=== PATIENT | male | born 1990 | race Caucasian/White ===

== ENCOUNTER 2019-01-18 21:05 | Emergency (ER) | payer BC ==
[~2019-01-18] VITALS: Ht 177.8 cm; Wt 78.9 kg
[2019-01-18 21:10] VITALS: BP_SYST 155
--- NOTE | 2019-01-18 21:10 | NUR ---
Patient to ER bed 6 to gown for evaluation. Side rails up. Report given to JON JONES.
[2019-01-18] MEDS ORDERED: ACETAMINOPHEN 325 MG TABLET ONE (21:35)
--- NOTE | 2019-01-18 21:44 | NUR ---
PT walked to bathroom in non slip shoes with steady gait to provide urine sample
[2019-01-18] MEDS ORDERED: ONDANSETRON HCL 4 MG/2 ML VIAL IVP ONE (21:45)
[2019-01-18] MEDS ORDERED: ONDANSETRON HCL 4 MG/2 ML VIAL ONE (21:48)
--- NOTE | 2019-01-18 21:50 | NUR ---
# 20 gauge angiocath placed to LAC. Use of asceptic technique. Opsite placed over site. Blood return noted. Blood for lab drawn from site. Flushed with 10 cc of normal saline. No evidence of infiltration noted. Patient tolerated well.
[2019-01-18 21:51] LABS: BILIRUBIN,URINE NEGATIVE (NEGATIVE); BLOOD, URINE NEGATIVE (NEGATIVE); CLARITY/URINE CLEAR (CLEAR); COLOR,URINE YELLOW (YELLOW); GLUCOSE,URINE 3+ (NEGATIVE); KETONES,URINE TRACE (NEGATIVE); LEUKOCYTE ESTERASE ,URINE NEGATIVE (NEGATIVE); NITRITE, URINE NEGATIVE (NEGATIVE); PROTEIN URINE NEGATIVE (NEGATIVE); UROBILINOGEN,URINE 0.2 (0.2-1.0)
--- NOTE | 2019-01-18 21:55 | NUR ---
Dr. Hatfield at bedside.
[2019-01-18] MEDS ORDERED: IPRATROPIUM/ALBUTEROL SULFATE 3 ML AMPUL.NEB (DUONEB) INH ONE (22:00)
--- NOTE | 2019-01-18 22:04 | NUR ---
RT at bedside. DuoNeb tx in progress.
--- NOTE | 2019-01-18 22:07 | NUR ---
Specimens for Strep and Influenza collected and sent to lab.
--- NOTE | 2019-01-18 22:10 | NUR ---
Pt to X-ray via W/C in stable condition.
--- NOTE | 2019-01-18 22:15 | NUR ---
Pt returns from x-ray. Verbalizes improvement in symptoms, no SOB, no C/P. Reconnected to case monitor, ST 112, Dr. Hatfield notified. IV fluids resume to patent PIV LAC without difficulty. No needs verbalized.
--- NOTE | 2019-01-18 22:20 | NUR ---
RT called for ABG.
--- NOTE | 2019-01-18 22:24 | NUR ---
RT at bedside to draw ABG.
[2019-01-18 22:25] LABS: BASOPHILS % (AUTO) 0.1 % (0.0-2.0); EOSINOPHILS # (AUTO) 0.1 K/uL (0.0-0.4); EOSINOPHILS % (AUTO) 1.3 % (0.0-4.0); HEMOGLOBIN 13.9 g/dL (14.0-18.0); LYMPHOCYTES # (AUTO) 0.7 K/uL (1.0-5.5); MEAN CORPUSCULAR HEMOGLOBIN 22 pg (27-31); MEAN CORPUSCULAR HGB CONC 32 % (32-36); MEAN CORPUSCULAR VOLUME 69 fL (79.0-98.0); MONOCYTES # (AUTO) 0.6 K/uL (0.0-1.0); MONOCYTES % (AUTO) 5.3 % (1.7-9.3); NEUTROPHILS # (AUTO) 9.7 K/uL (1.8-7.7); NEUTROPHILS % (AUTO) 87.3 % (40.0-70.0); PLATELET COUNT (AUTO) 221 K/uL (130-430); RED BLOOD CELL COUNT(AUTO) 6.34 MIL/uL (4.2-6.2); RED CELL DISTRIBUTION WIDTH 14.3 % (9.0-15.0); WHITE BLOOD COUNT (AUTO) 11.1 K/uL (4.8-10.8)
[2019-01-18] MEDS ORDERED: NACL 0.9% 1,000 ML IV ONE ×2 (22:30→23:30)
[2019-01-18 22:31] LABS: STREPTOCOCCUS A SCREEN (RAPID) NEGATIVE (NEGATIVE)
[2019-01-18 22:40] LABS: CALCIUM 9.3 mg/dL (8.4-11.0); CREATININE 0.99 mg/dL (0.55-1.30); POTASSIUM 3.8 mmol/L (3.5-5.1)
[2019-01-18 22:42] LABS: INFLUENZA A&B ANTIGEN SCREEN NEGATIVE FOR A & B (NEGATIVE)
[2019-01-18 22:43] LABS: TOTAL BILIRUBIN 0.5 mg/dL (0.0-1.0)
--- NOTE | 2019-01-19 | NUR ---
PT reports difficulty breathing. 99% on RA. Dr. Hatfield at bedside for evaluation.
[2019-01-19] MEDS ORDERED: IPRATROPIUM/ALBUTEROL SULFATE 3 ML AMPUL.NEB (DUONEB) INH ONE (00:15)
--- NOTE | 2019-01-19 00:16 | NUR ---
RT at bedside for breathing tx
--- NOTE | 2019-01-19 01:59 | NUR ---
Patient given written and verbal discharge instructions and verbalizes understanding. ER MD discussed with patient the results and treatment provided. Patient in stable condition. ID arm band removed. IV catheter removed intact and dressing applied, no active bleeding. Rx of ZOFRAN AND ALBUTEROL given. Patient educated on pain management and to follow up with PMD. Pain Scale 0/10. Opportunity for questions provided and answered. Medication side effect fact sheet provided.
[2019-01-19 02:01] VITALS: BP_SYST 155
== END 2019-01-19 02:01 | disposition home or self-care (01) ==
LOC: SED 21:05
DX: J06.9 Acute upper respiratory infection, unspecified (principal); E11.649 Type 2 diabetes mellitus with hypoglycemia without coma; J45.909 Unspecified asthma, uncomplicated; R03.0 Elevated blood-pressure reading, without diagnosis of hypertension
CPT/HCPCS: 36415; 36600; 71046; 80053; 81003; 82803; 82962; 83605; 85025; 86308; 86403; 86710; 87081; 94640 ×2; 96361; 96374; 99284; J2405; J7030; J7620 ×2